=== PATIENT | male | born 1960 | race Caucasian/White ===

== ENCOUNTER → 2017-07-18 16:55 | Outpatient (CLI) | payer OTHER, SELFPAY ==
[2017-07-18 17:59] LABS: Hematocrit 43.5 % (40-54); Hemoglobin 14.6 g/dl (13.0-16.5); Mean Corp Hgb Conc 33.6 g/gl (32-36); Mean Corpuscular Volume 89.5 fL (80-94); Mean Platelet Vol. 10.6 fl (6.2-12.0); Platelet Count 219 K/mm3 (150-450); RBC Distribution Width CV 12.8 % (11.6-14.6); RBC Distribution Width SD 41.4 fl (35.1-43.9); Red Blood Count 4.86 M/mm3 (4.6-6.2); White Blood Count 7.6 K/mm3 (4.4-11.0)
--- NOTE | 2017-07-18 18:01 | EKG12_ITS ---
Test Reason : PRE-OP Blood Pressure : / mmHG Vent. Rate : 060 BPM Atrial Rate : 060 BPM P-R Int : 170 ms QRS Dur : 106 ms QT Int : 426 ms P-R-T Axes : 067 051 072 degrees QTc Int : 426 ms Normal sinus rhythm Normal ECG Confirmed by PAULINE MONTOYA, PATO ([id number]), greeting card editor GAYLE MILLS ([id number] on 07/21/2017 1:45:03 PM Referred By: Enrico Gonzáles Confirmed By:PATO CARPENTER MD
[2017-07-18 18:09] LABS: Scan Indicated on CBC? Y/N NO
[2017-07-18 18:26] LABS: Anion Gap 6 (5-15); BUN 16 mg/dL (7-18); BUN/Creat Ratio 15.4 RATIO (10-20); Calcium,Total 8.8 mg/dL (8.5-10.1); Chloride 107 mmol/L (98-107); Creatinine, Serum 1.04 mg/dL (0.70-1.30); EST Glomerular Filtration Rate 78 mL/min (>60); Est Glom Filt Rate - Afr Amer 95 mL/min (>60); Glucose 81 mg/dL (74-106); Potassium 4.4 mmol/L (3.5-5.1); Sodium Level 140 mmol/L (136-145)
== END ==
PROVIDERS: Family Provider Internal Medicine; PCP Internal Medicine; Visit Provider Physician Assistant
DX: Z01.810 Encounter for preprocedural cardiovascular examination (principal); Z01.818 Encounter for other preprocedural examination
CPT/HCPCS: 36415; 80048; 85027; 93005